=== PATIENT | female | born 1985 ===

== ENCOUNTER 2023-01-21 17:25 | Emergency (ER) | payer OTHER, SELFPAY ==
--- NOTE | ~2023-01-21 | CT_ITS ---
EXAMINATION: CT ABDOMEN AND PELVIS WITHOUT CONTRAST CLINICAL INFORMATION: Right flank pain. COMPARISON: CT abdomen/pelvis 01/01/2018. TECHNIQUE: Multidetector volumetric imaging was performed from the superior aspect of the liver through the pubic symphysis. Sagittal and coronal reformatted images were obtained on the technologist's workstation. This CT examination was performed using dose optimization techniques as appropriate, variously including the following: *Automated exposure control *Adjustment of mA and/or kV according to patient size (this includes techniques or standardized protocols for targeted exams where dose is matched to indication/reason for exam; i.e. extremities or head) *Use of iterative reconstruction technique DLP: 546 mGy-cm FINDINGS: The lack of intravenous contrast limits evaluation of the solid visceral organs including the liver, spleen, pancreas, and kidneys. LUNG BASES: The visualized lung bases are unremarkable. LIVER, GALLBLADDER, AND BILIARY TREE: The liver is normal in size, shape, and attenuation. No focal liver lesion. No biliary ductal dilatation is present. Cholecystectomy. PANCREAS: Unremarkable. SPLEEN: Unremarkable. ADRENAL GLANDS: Unremarkable. KIDNEYS AND URETERS: Trace asymmetric right hydroureter without a clear obstructive renal calculi. Punctate nonobstructing right-sided renal calculi. Simple appearing cyst in the anterior right kidney measuring 1.8 cm for which no imaging follow-up is recommended. No perinephric fat stranding. BLADDER: Unremarkable. GASTROINTESTINAL TRACT: The stomach and the small bowel are nondilated. Normal appendix. Mild colonic diverticulosis without significant pericolonic fat stranding or free fluid. No bowel obstruction. ABDOMINAL WALL: No significant hernia is appreciated. LYMPH NODES: No lymphadenopathy. VASCULAR: Normal caliber abdominal aorta. PELVIC VISCERA: Unremarkable. OSSEOUS STRUCTURES: No acute or aggressive appearing osseous findings. CT/CT abdomen pelvis wo IV con IMPRESSION: 1. Trace asymmetric right hydroureter without a clear obstructive renal calculi that could be seen in the setting of a recently passed stone. 2. Punctate nonobstructing right-sided renal calculi. 3. Mild colonic diverticulosis without evidence of acute diverticulitis.
[2023-01-21 18:18] VITALS: BP 127/94; PULSE 109; RESP 18; TEMP 38.6; O2SAT 100; BMI 28.4
--- NOTE | 2023-01-21 18:20 | ED_ITS ---
HPI - Abdominal Pain General Chief Complaint: Abdominal Pain Stated Complaint: low abd pain ? kidney stones Time Seen by Provider: 01/21/23 21:06 Source: patient, family and lead customer service representative Mode of arrival: ambulatory Limitations: no limitations History of Present Illness HPI narrative: 37-year-old female came in for evaluation of fever, chills, right-sided abdominal /flank pain. Patient's symptoms started 3 days patient gets frequent UTIs been having dysuria and frequency urination now she has right flank pain. No hematuria. Related Data Previous Rx's Medication Instructions Recorded cefuroxime axetil 500 mg tablet 500 mg PO BID #20 tabs 01/21/23 Allergies Allergy/AdvReac Type Severity Reaction Status Date / Time prochlorperazine Allergy Anaphylaxis Verified 01/21/23 18:25 [From Compazine] tramadol Allergy Anaphylaxis Verified 01/21/23 18:25 Review of Systems Review of Systems All other systems are reviewed and are negative Constitutional: Reports as per HPI and Reports no additional constitutional complaints Eyes: Reports as per HPI and Reports no additional eye complaints Reports system reviewed and no additional complaints, except as documented Cardiovascular: Reports as per HPI and Reports no additional cardiovascular complaints Respiratory: Reports as per HPI and Reports no additional respiratory complaints Gastrointestinal: Reports as per HPI and Reports no additional gastrointestinal complaints Genitourinary: Reports no additional female genitourinary complaints Musculoskeletal: Reports no additional musculoskeletal complaints Skin/Breast: Reports system reviewed and no additional complaints, except as docu Psychiatric: Reports no additional psychiatric complaints Endocrine: Reports no additional endocrine complaints Hematologic/Lymphatic: Reports no additional hematologic/lymphatic complaints Allergic/Immunologic: Reports no additional allergic/immunologic complaints Reports system reviewed and no additional complaints, except as documented and Reports Abnormal speech present [facility] Social History Social History Smoked in Last 30 Days: No Use of substances other than those prescribed or required for medical reasons: No Patient : No Physical Exam ED Vital Signs: Vital Signs - 24 hr 01/21/23 18:18 Temperature 101.4 F H Pulse Rate 109 H Respiratory Rate 18 Blood Pressure 127/94 H Pulse Oximetry 100 Oxygen Delivery Method Room Air BMI result Body Mass Index 28.4 Vital signs have been reviewed and appear to be correct. Blood pressure elevated. Heart rate tachycardia. Respiratory rate normal. Febrile. Oxygen saturation normal. Appearance: Alert. Oriented X3. No acute distress. Head: Normal external exam. Normocephalic. Atraumatic. No Stacy signs noted. No raccoon eyes noted Eyes: PERRLA. EOMI. Conjunctiva and sclera normal. Eyelids normal. ENT: TM's Normal. Pharynx normal. Uvula midline. Moist mucous membranes. No trismus noted. No drooling noted. No muffled voice noted. Neck: Normal inspection. Neck supple. FROM. No adenopathy. Thyroid Normal. No meningeal signs. No neck mass noted. CVS: Normal heart rate and rhythm. Heart sound normal. No murmurs noted. Pulses normal throughout. Respiratory: No respiratory distress. Painless inspiration. Breath sounds normal. No wheezes/rales/rhonchi noted. Chest nontender. No accessory muscle usage noted or decreased air movement noted. Abdomen: Soft and nontender. Bowel sounds normal in all 4 quadrants. No distention noted. No organomegaly noted. No visible injury noted. Back: right CVA tenderness. Full range of motion noted. Skin: Skin warm and dry. Normal skin color. Normal skin turgor. No rashes/lesions/lacerations noted. Extremities: No lower extremity edema. Extremities exhibit normal range of motion. Extremities nontender. Neuro: Oriented X 3. Cranial nerve exam: II-XII are grossly intact No motor deficit. No sensory deficit. Reflexes normal. Course Course Course Narrative: 1827-This is a rapid medical exam. Deferred additional HPI, ROS, PE to primary provider. 37 yo female with history of kidney stones here with complaints of tactile temps, nausea, right flank pain since 2pm. Will obtain labs, UA - nursing informed me that the patient has a fever of 101.3. She is also tachycardic. At this time infection is suspected. Blood cultures and lactic acid ordered. Antibiotics ordered. CT abdomen and pelvis ordered. Charge nurse was notified of patient. patient reports history of previous kidney stone with sepsis Reevaluation(s) Reevaluation #1: right pyelonephritis with no obstructing uropathy, patient meet criteria for SIRS no severe sepsis or septic shock. Received in the ED fluid ceftriaxone will discharge home on cefuroxime. Patient was encouraged to drink plenty of fluids and return if she is not improving. Mild hypokalemia will replete potassium orally. Time: 21:21 Medical Decision Making Differential Diagnosis Differential Diagnoses: The differential diagnosis associated with the presentation includes ( Acute appendicitis, colitis, diverticulitis, small- bowel obstruction, UTI, pyelonephritis, sepsis, severe anemia, electrolyte abnormality , .) Admission/Observation Consideration of admission/observation: Escalation of care including admission/observation considered Lab Data MDM Lab Attestation statement: I reviewed the patient's lab results. 01/21/23 18:31 01/21/23 18:31 Labs: Lab Results 01/21/23 01/21/23 Range/Units 18:31 18:39 WBC 11.0 H (4.8-10.8) X10*3/uL RBC 4.73 (4.20-5.50) X10*6/uL Hgb 13.9 (12.0-16.0) g/dl Hct 41.2 (37.0-47.0) % MCV 87.1 (80.0-98.0) fL MCH 29.4 (27.0-33.0) pg MCHC 33.7 (31.0-35.0) g/dl RDW 13.4 (11.0-16.0) % Plt Count 219 (160-400) X10*3/uL MPV 9.6 (9.4-12.3) fL Immature Gran % (Auto) 0.5 H (0.0-0.4) % Neut % (Auto) 88.6 H (45-73) % Lymph % (Auto) 4.3 L (20-40) % [place] % (Auto) 5.2 (2-11) % Eos % (Auto) 1.0 (0-4) % Baso % (Auto) 0.4 (0-2) % Lymph # (Auto) 0.5 L (1.2-4.9) X10*3/uL [place] # (Auto) 0.6 (0.1-1.2) X10*3/uL Eos # (Auto) 0.1 (0.0-0.4) X10*3/uL Baso # (Auto) 0.0 (0.0-0.2) X10*3/uL Abs Immat Gran (auto) 0.05 H (0.00-0.03) X10*3/uL Absolute Neuts (auto) 9.8 H (2.0-8.3) x10*3/uL Absolute Nucleated RBC 0.000 (0.0-0.012) X10*3/uL Nucleated RBC % (auto) 0.0 (0.0-0.2) /100WBC Sodium 139 (135-145) mmol/L Potassium 3.2 L (3.3-5.1) mmol/L Chloride 102 (96-108) mmol/L Carbon Dioxide 26 (22-29) mmol/L Anion Gap 14 (12-20) BUN 9 (9-16) mg/dL Creatinine 0.85 (0.5-1.4) mg/dL Estim Creat Clear Calc 86.6 Estimated GFR > 60 Random Glucose 119 H (60-115) mg/dL Lactic Acid 1.5 (0.5-2.0) mmol/L Calcium 9.8 (8.4-10.2) mg/dL Total Bilirubin 1.1 H (0.0-1.0) mg/dL Direct Bilirubin 0.4 (0.0-0.5) mg/dL AST 23 (5-31) U/L ALT 23 (0-31) U/L Alkaline Phosphatase 85 (39-117) U/L Total Protein 8.5 H (6.5-8.0) g/dL Albumin 5.0 (3.5-5.0) g/dL Lipase 30 (8-78) U/L Urine Color Yellow Urine Appearance Cloudy Urine pH 6.0 (5.0-9.0) Ur Specific [place] 1.010 (1.005-1.025) Urine Protein 30 (1+) H (Neg-Trace) mg/dL Urine Glucose (UA) Negative (Negative) mg/dL Urine Ketones Negative (Negative) mg/dL Urine Blood Moderate (2+) H (Negative) Urine Nitrite Negative (Negative) Ur Leukocyte Esterase Large (3+) H (Negative) Urine RBC 6-10 H (0-2) /HPF Urine WBC >50 H (0-5) /HPF Ur Squamous Epith Cells 0-2 (0-2) /HPF Urine Bacteria 1+ (None Seen) Hyaline Casts 0-2 (0-2) /LPF Urine Test NEGATIVE (NEGATIVE) Independent Interpretation I performed an independent interpretation of an: CT Scan ( Abdomen and pelvis:1. Trace asymmetric right hydroureter without a clear obstructive renal calculi that could be seen in the setting of a recently passed stone. 2. Punctate nonobstructing right-sided renal calculi. 3. Mild colonic diverticulosis without evidence of acute diverticulitis.) Radiology Impression Discussion of test interpretation with radiology: I have reviewed the radiologist's reading. Medications Administered Discontinued Medications Generic Name Dose Route Start Last Admin Trade Name Freq PRN Reason Stop Dose Admin Acetaminophen 975 mg 01/21/23 18:26 01/21/23 20:04 Acetaminophen 325 Mg Tablet PO 01/21/23 18:27 975 mg ONCE ONE Administration Ceftriaxone Sodium 1 gm/ 50 mls @ 100 mls/hr 01/21/23 18:27 01/21/23 20:37 Sodium Chloride IV 01/21/23 18:56 Infused ONCE ONE Infusion Sodium Chloride 1,000 mls @ 999 mls/hr 01/21/23 18:27 01/21/23 20:04 Ns IV 01/21/23 19:27 999 mls/hr .Q1H1M STA Administration Discharge Plan Discharge Clinical Impression: Pyelonephritis of right kidney, Acute hypokalemia Patient Disposition: Home, Self-Care Instructions: Kidney Infection (ED) Additional Instructions: drink plenty of fluid. Follow-up with your primary doctor. If symptoms is not going away or you do not feel improved in 48 hours return to the emergency department. Prescriptions: New cefuroxime axetil 500 mg tablet 500 mg PO BID Qty: 20 0RF
[2023-01-21 18:37] LABS: MANUAL DIFF FLAG NO
[2023-01-21 18:38] LABS: Basophils Percent Auto 0.4 % (0-2); Eosinophils Absolute Auto 0.1 X10*3/uL (0.0-0.4); Hematocrit 41.2 % (37.0-47.0); Hemoglobin 13.9 g/dl (12.0-16.0); Imm Gran Abs Auto 0.05 X10*3/uL (0.00-0.03); Imm Gran Pct Auto 0.5 % (0.0-0.4); Lymphocytes Absolute Auto 0.5 X10*3/uL (1.2-4.9); Lymphocytes Percent Auto 4.3 % (20-40); Mean Corpuscular HGB Conc 33.7 g/dl (31.0-35.0); Mean Corpuscular Hemoglobin 29.4 pg (27.0-33.0); Mean Corpuscular Volume 87.1 fL (80.0-98.0); Mean Platelet Volume 9.6 fL (9.4-12.3); Monocytes Absolute Auto 0.6 X10*3/uL (0.1-1.2); Monocytes Percent Auto 5.2 % (2-11); Neutrophils Absolute Auto 9.8 x10*3/uL (2.0-8.3); Neutrophils Percent Auto 88.6 % (45-73); Platelet Count 219 X10*3/uL (160-400); Red Blood Count 4.73 X10*6/uL (4.20-5.50); Red Cell Distribution Width 13.4 % (11.0-16.0)
[2023-01-21 18:47] LABS: Appearance Urine Cloudy; Color Urine Yellow; Glucose Urine UA Negative (Negative); Leukocyte Esterase Urine Large (3+) (Negative); Nitrite Urine Negative (Negative); UMIC TRIGGER UACC YES; Urine Blood Moderate (2+) (Negative); Urine Ketones Negative (Negative); Urine Protein 30 (1+) mg/dL (Neg-Trace)
[2023-01-21 18:47] LABS: Lactic Acid 1.5 mmol/L (0.5-2.0)
[2023-01-21 18:49] LABS: Bacteria Urine 1+ (None Seen); Hyaline Casts Urine 0-2 /LPF (0-2); Squamous Epithelial Cell Urine 0-2 /HPF (0-2); UACC Culture Trigger YES; UPreg QC Valid YES; Urine Pregnancy NEGATIVE (NEGATIVE); WBC Urine >50 /HPF (0-5)
[2023-01-21 18:53] LABS: Alanine Aminotransferase 23 U/L (0-31); Alkaline Phosphatase 85 U/L (39-117); Anion Gap 14 (12-20); Aspartate Amino Transferase 23 U/L (5-31); Bilirubin Direct 0.4 mg/dL (0.0-0.5); Bilirubin Total 1.1 mg/dL (0.0-1.0); Blood Urea Nitrogen 9 mg/dL (9-16); Calcium 9.8 mg/dL (8.4-10.2); Carbon Dioxide 26 mmol/L (22-29); Chloride 102 mmol/L (96-108); Creatinine Clr Calc Pharmacy 86.6; Estimated Glomerular Filt Rate > 60; Glucose Random 119 mg/dL (60-115); Lipase 30 U/L (8-78); Potassium 3.2 mmol/L (3.3-5.1); Sodium 139 mmol/L (135-145); Total Protein 8.5 g/dL (6.5-8.0)
[2023-01-21] MEDS: cefTRIAXone sodium 1 GM in 0.9 % Sodium Chloride 50 ML IV (20:03)
[2023-01-21] MEDS: 0.9 % Sodium Chloride 1,000 ML 999 ML IV ×2 (20:04→21:30)
[2023-01-21] MEDS: Acetaminophen 325 MG TABLET 975 MG PO (20:04)
--- NOTE | 2023-01-21 20:07 | PC.NURSE ---
Placed a 20g IV in the left AC and medicated per MAY. Pt A&Ox4, GCS 15, complaining of pain in her lower abdomen and shivers. Pt is primarily [place] Speaking but makes do in [place].
[2023-01-21] MEDS: Potassium Chloride Packet 20 MEQ PACKET 40 MEQ PO (21:20)
[2023-01-21 21:25] VITALS: BP 112/64; PULSE 99; RESP 14; TEMP 37.1; O2SAT 98
[2023-01-21 22:27] VITALS: BP 100/61; PULSE 86; RESP 16; TEMP 36.7; O2SAT 100
== END 2023-01-21 22:33 | disposition home or self-care (01) ==
PROVIDERS: Nurse Practitioner Family; Emergency Provider Emergency Medicine
DX: N12 Tubulo-interstitial nephritis, not specified as acute or chronic (principal); E87.6 Hypokalemia; R50.9 Fever, unspecified; R00.0 Tachycardia, unspecified; K57.30 Diverticulosis of large intestine without perforation or abscess without bleeding
CPT/HCPCS: 36415; 74176; 80048; 80076; 81001; 81025; 83605; 83690; 85025; 87040; 87086; 87088; 87186; 96361; 96365; 99284; J0696

== ENCOUNTER 2023-04-27 08:28 | Emergency (ER) | payer OTHER, SELFPAY ==
--- NOTE | ~2023-04-27 | CT_ITS ---
EXAMINATION: CT ABDOMEN AND PELVIS WITHOUT CONTRAST CLINICAL INFORMATION: Right flank pain. COMPARISON: 01/21/2023 TECHNIQUE: Multidetector volumetric imaging was performed from the superior aspect of the liver through the pubic symphysis. Sagittal and coronal reformatted images were obtained on the technologist's workstation. This CT examination was performed using dose optimization techniques as appropriate, variously including the following: *Automated exposure control *Adjustment of mA and/or kV according to patient size (this includes techniques or standardized protocols for targeted exams where dose is matched to indication/reason for exam; i.e. extremities or head) *Use of iterative reconstruction technique DLP: 613 mGy-cm FINDINGS: Motion artifact technically degrades image quality. LUNG BASES: The visualized lung bases are unremarkable. LIVER, GALLBLADDER, AND BILIARY TREE: The noncontrast liver is normal in size and contour. No biliary ductal dilatation is present. The gallbladder is surgically absent. PANCREAS: Unremarkable. SPLEEN: Enlarged. The spleen measures 13.5 cm in AP dimension. ADRENAL GLANDS: No adrenal mass. KIDNEYS AND URETERS: The kidneys are symmetric in size. Bilateral nonobstructing renal calculi. The medullary pyramids appear hyperdense. No hydronephrosis or perinephric fluid collection. Stable right renal cyst. BLADDER: Underdistended. No bladder calculus is seen. GASTROINTESTINAL TRACT: Unopacified loops of small and large bowel are not obstructed. Appendix is within normal limits. ABDOMINAL WALL: No significant hernia is appreciated. LYMPH NODES: No bulky lymphadenopathy. VASCULAR: Normal caliber abdominal aorta. PELVIC VISCERA: Unremarkable. OSSEOUS STRUCTURES: No destructive bone lesions. CT/CT abdomen pelvis wo IV con IMPRESSION: Limited study due to motion artifact. Splenomegaly. Bilateral nonobstructing renal calculi. No hydronephrosis. Findings suggestive of medullary nephrocalcinosis.
[2023-04-27 08:39] VITALS: BP 121/76; PULSE 93; RESP 19; TEMP 36.6; O2SAT 98; BMI 28.9
[2023-04-27 08:56] LABS: MANUAL DIFF FLAG NO
[2023-04-27 08:57] LABS: Basophils Percent Auto 0.2 % (0-2); Eosinophils Absolute Auto 0.1 X10*3/uL (0.0-0.4); Eosinophils Percent Auto 1.8 % (0-4); Imm Gran Abs Auto 0.02 X10*3/uL (0.00-0.03); Imm Gran Pct Auto 0.3 % (0.0-0.4); Lymphocytes Absolute Auto 0.3 X10*3/uL (1.2-4.9); Lymphocytes Percent Auto 5.7 % (20-40); Mean Corpuscular HGB Conc 34.1 g/dl (31.0-35.0); Mean Corpuscular Hemoglobin 29.1 pg (27.0-33.0); Mean Corpuscular Volume 85.2 fL (80.0-98.0); Mean Platelet Volume 8.8 fL (9.4-12.3); Monocytes Absolute Auto 0.3 X10*3/uL (0.1-1.2); Monocytes Percent Auto 5.2 % (2-11); Neutrophils Absolute Auto 5.2 x10*3/uL (2.0-8.3); Neutrophils Percent Auto 86.8 % (45-73); Platelet Count 137 X10*3/uL (160-400); Red Blood Count 4.81 X10*6/uL (4.20-5.50); Red Cell Distribution Width 13.7 % (11.0-16.0)
[2023-04-27 08:58] LABS: Appearance Urine Turbid; Color Urine Dark Yellow; Glucose Urine UA Negative (Negative); Leukocyte Esterase Urine Negative (Negative); Nitrite Urine Negative (Negative); PH 5.5 (5.0-9.0); Specific Gravity - Urine >= 1.030 (1.005-1.025); UMIC TRIGGER UACC YES; Urine Blood Trace (Negative); Urine Ketones Trace mg/dL (Negative); Urine Protein 30 (1+) mg/dL (Neg-Trace)
[2023-04-27 09:02] LABS: UPreg QC Valid YES; Urine Pregnancy NEGATIVE (NEGATIVE)
[2023-04-27 09:07] LABS: Bacteria Urine 2+ (None Seen); Hyaline Casts Urine 0-2 /LPF (0-2); Squamous Epithelial Cell Urine >20 /HPF (0-2); WBC Urine 0-5 /HPF (0-5)
[2023-04-27 09:08] LABS: Anion Gap 12 (12-20); Blood Urea Nitrogen 12 mg/dL (9-16); Calcium 8.6 mg/dL (8.4-10.2); Carbon Dioxide 22 mmol/L (22-29); Chloride 106 mmol/L (96-108); Creatinine Clr Calc Pharmacy 104.5; Estimated Glomerular Filt Rate > 60; Glucose Random 98 mg/dL (60-115); Potassium 3.3 mmol/L (3.3-5.1); Sodium 137 mmol/L (135-145)
--- NOTE | 2023-04-27 09:37 | ED_ITS ---
HPI - Female Genitourinary General Chief complaint: Urogenital-Female Stated complaint: Pain near kidneys Time Seen by Provider: 04/27/23 09:24 Source: patient Mode of arrival: ambulatory Limitations: no limitations History of Present Illness HPI Narrative: 37-year-old female came in for evaluation of bilateral flank pain right more than left worse since yesterday, patient had similar pain in the past when she had kidney stones and urosepsis. Patient noticed dark urine but no serg hematuria, slight dysuria and frequency urination. Patient also felt chills but no fever. Related Data Previous Rx's Medication Instructions Recorded cefuroxime axetil 500 mg tablet 500 mg PO BID #20 tabs 01/21/23 cefuroxime axetil 500 mg tablet 500 mg PO BID #20 tabs 01/21/23 Allergies Allergy/AdvReac Type Severity Reaction Status Date / Time prochlorperazine Allergy Anaphylaxis Verified 04/27/23 08:37 [From Compazine] tramadol Allergy Anaphylaxis Verified 04/27/23 08:37 Review of Systems 2 Review of Systems: All other systems are reviewed and are negative Constitutional: Reports as per HPI and Reports no additional constitutional complaints Eyes: Reports as per HPI and Reports no additional eye complaints Reports system reviewed and no additional complaints, except as documented Cardiovascular: Reports as per HPI and Reports no additional cardiovascular complaints Respiratory: Reports as per HPI and Reports no additional respiratory complaints Gastrointestinal: Reports as per HPI and Reports no additional gastrointestinal complaints Genitourinary: Reports no additional female genitourinary complaints Musculoskeletal: Reports no additional musculoskeletal complaints Skin/Breast: Reports system reviewed and no additional complaints, except as docu Psychiatric: Reports no additional psychiatric complaints Endocrine: Reports no additional endocrine complaints Hematologic/Lymphatic: Reports no additional hematologic/lymphatic complaints Allergic/Immunologic: Reports no additional allergic/immunologic complaints Reports system reviewed and no additional complaints, except as documented and Reports Abnormal speech present [facility] Social History Social History Advance Directives: No Physical Exam 2 Vital Signs: Vital Signs: Last Vital Signs Temp 98 F 04/27/23 08:39 Pulse 93 04/27/23 08:39 Resp 19 04/27/23 08:39 BP 121/76 04/27/23 08:39 Pulse Ox 98 04/27/23 08:39 O2 Del Method Room Air 04/27/23 08:39 BMI result Body Mass Index 28.9 Vital signs have been reviewed and appear to be correct. Blood pressure elevated. Heart rate normal. Respiratory rate normal. Temperature normal. Oxygen saturation normal. Appearance: Alert. Oriented X3. No acute distress. Head: Normal external exam. Normocephalic. Atraumatic. No Stacy signs noted. No raccoon eyes noted Eyes: PERRLA. EOMI. Conjunctiva and sclera normal. Eyelids normal. ENT: TM's Normal. Pharynx normal. Uvula midline. Moist mucous membranes. No trismus noted. No drooling noted. No muffled voice noted. Neck: Normal inspection. Neck supple. FROM. No adenopathy. Thyroid Normal. No meningeal signs. No neck mass noted. CVS: Normal heart rate and rhythm. Heart sound normal. No murmurs noted. Pulses normal throughout. Respiratory: No respiratory distress. Painless inspiration. Breath sounds normal. No wheezes/rales/rhonchi noted. Chest nontender. No accessory muscle usage noted or decreased air movement noted. Abdomen: Soft, mild right lower quadrant tenderness, no guarding, no rebound tenderness. Bowel sounds normal in all 4 quadrants. No distention noted. No organomegaly noted. No visible injury noted. Back: Right CVA tenderness. Full range of motion noted. Skin: Skin warm and dry. Normal skin color. Normal skin turgor. No rashes/lesions/lacerations noted. Extremities: No lower extremity edema. Extremities exhibit normal range of motion. Extremities nontender. Neuro: Oriented X 3. Cranial nerve exam: II-XII are grossly intact No motor deficit. No sensory deficit. Reflexes normal. Course Reevaluation(s) Reevaluation #1: 37-year-old female came in with flank pain patient with known history of kidney stones, CT of the abdomen pelvis is showing no obstructing stone with no hydronephrosis, UA not revealing a UTI. Patient otherwise with unremarkable labs. Patient was instructed to follow-up with her urologist at [place]. Time: 12:12 Medications Administered Discontinued Medications Generic Name Dose Route Start Last Admin Trade Name Freq PRN Reason Stop Dose Admin Sodium Chloride 1,000 mls @ 999 mls/hr 04/27/23 09:37 04/27/23 10:38 Ns IV 04/27/23 10:37 999 mls/hr .Q1H1M ONE Administration Medical Decision Making Differential Diagnosis Differential Diagnoses: The differential diagnosis associated with the presentation includes ( Pyelonephritis, UTI, obstructing kidney stone, appendicitis, colitis, severe anemia, electrolyte abnormality , .) Admission/Observation Consideration of admission/observation: Escalation of care including admission/observation considered Lab Data MDM Lab Attestation statement: I reviewed the patient's lab results. 04/27/23 08:51 04/27/23 08:51 Labs: Lab Results 04/27/23 Range/Units 08:51 WBC 6.0 (4.8-10.8) X10*3/uL RBC 4.81 (4.20-5.50) X10*6/uL Hgb 14.0 (12.0-16.0) g/dl Hct 41.0 (37.0-47.0) % MCV 85.2 (80.0-98.0) fL MCH 29.1 (27.0-33.0) pg MCHC 34.1 (31.0-35.0) g/dl RDW 13.7 (11.0-16.0) % Plt Count 137 L D (160-400) X10*3/uL MPV 8.8 L (9.4-12.3) fL Immature Gran % (Auto) 0.3 (0.0-0.4) % Neut % (Auto) 86.8 H (45-73) % Lymph % (Auto) 5.7 L (20-40) % [place] % (Auto) 5.2 (2-11) % Eos % (Auto) 1.8 (0-4) % Baso % (Auto) 0.2 (0-2) % Lymph # (Auto) 0.3 L (1.2-4.9) X10*3/uL [place] # (Auto) 0.3 (0.1-1.2) X10*3/uL Eos # (Auto) 0.1 (0.0-0.4) X10*3/uL Baso # (Auto) 0.0 (0.0-0.2) X10*3/uL Abs Immat Gran (auto) 0.02 (0.00-0.03) X10*3/uL Absolute Neuts (auto) 5.2 (2.0-8.3) x10*3/uL Absolute Nucleated RBC 0.000 (0.0-0.012) X10*3/uL Nucleated RBC % (auto) 0.0 (0.0-0.2) /100WBC Sodium 137 (135-145) mmol/L Potassium 3.3 (3.3-5.1) mmol/L Chloride 106 (96-108) mmol/L Carbon Dioxide 22 (22-29) mmol/L Anion Gap 12 (12-20) BUN 12 (9-16) mg/dL Creatinine 0.71 (0.5-1.4) mg/dL Estim Creat Clear Calc 104.5 Estimated GFR > 60 Random Glucose 98 (60-115) mg/dL Calcium 8.6 D (8.4-10.2) mg/dL Urine Color Dark Yellow Urine Appearance Turbid Urine pH 5.5 (5.0-9.0) Ur Specific [place] >= 1.030 H (1.005-1.025) Urine Protein 30 (1+) H (Neg-Trace) mg/dL Urine Glucose (UA) Negative (Negative) mg/dL Urine Ketones Trace (Negative) mg/dL Urine Blood Trace H (Negative) Urine Nitrite Negative (Negative) Ur Leukocyte Esterase Negative (Negative) Urine RBC 3-5 H (0-2) /HPF Urine WBC 0-5 (0-5) /HPF Ur Squamous Epith Cells >20 (0-2) /HPF Urine Bacteria 2+ (None Seen) Hyaline Casts 0-2 (0-2) /LPF Urine Test NEGATIVE (NEGATIVE) Independent Interpretation I performed an independent interpretation of an: CT Scan ( Abdomen and pelvis:Limited study due to motion artifact. Splenomegaly. Bilateral nonobstructing renal calculi. No hydronephrosis. Findings suggestive of medullary nephrocalcinosis.) Chronic Conditions Patient?s care impacted by: Other ( Kidney stones.) Discharge Plan Discharge Clinical Impression: Flank pain Patient Disposition: Home, Self-Care Instructions: Flank Pain (ED) Additional Instructions: follow-up with your urologist. Prescriptions: No Action cefuroxime axetil 500 mg tablet 500 mg PO BID Qty: 20 0RF cefuroxime axetil 500 mg tablet 500 mg PO BID Qty: 20 0RF
[2023-04-27] MEDS: 0.9 % Sodium Chloride 1,000 ML 999 ML IV (10:38)
[2023-04-27 12:33] VITALS: BP 105/60; PULSE 88; RESP 14; TEMP 36.6; O2SAT 99
== END 2023-04-27 12:34 | disposition home or self-care (01) ==
PROVIDERS: Emergency Provider Emergency Medicine
DX: R10.9 Unspecified abdominal pain (principal)
CPT/HCPCS: 36415; 74176; 80048; 81001; 81003; 81025; 85025; 99284

== ENCOUNTER 2024-03-23 15:32 | Emergency (ER) | payer OTHER, SELFPAY ==
--- NOTE | ~2024-03-23 | CT_ITS ---
CLINICAL HISTORY: hematuria, b l flank pain CT abdomen and pelvis without contrast Comparison: 04/27/23 Findings: No hydronephrosis. Right nephrolithiasis measures up to 3 mm. Question punctate left nephrolithiasis. Right renal cyst, also present on the prior study No bladder stone. No consolidation at the lung bases. Status post cholecystectomy. Subcentimeter low attenuating lesion in the liver which is too small to characterize. Splenomegaly, measuring 14.3 cm in craniocaudal dimension, previously measuring 12.8 cm. The other solid organs are normal. No bowel wall thickening or dilation. A normal appendix is identified. No aneurysm. Trace calcified atherosclerotic disease. No lymphadenopathy. No ascites. No acute fracture. Impression: No urinary tract obstruction or other acute findings. Splenomegaly. This document has been electronically signed by: Arpita Louise MD on 03/23/2024 18:30:17
[2024-03-23 15:37] VITALS: BP 140/89; PULSE 98; RESP 19; TEMP 36.6; O2SAT 99; BMI 28.9
--- NOTE | 2024-03-23 15:37 | ED_ITS ---
HPI - General Adult General Chief complaint: Urogenital-Female Stated complaint: kidney pain/hx of sepsis from kidney stones Time Seen by Provider: 03/23/24 20:44 Source: patient Limitations: no limitations History of Present Illness ED Provider: Tanna Villa PA-C HPI narrative: 38-year-old female with a history of kidney stones, with self report of urosepsis secondary to an obstructing ureteral stone, presents with bilateral flank pain times 1-2 days. Pain primarily over right mid back/flank, is nonradiating. Denies fever, dysuria, hematuria, nausea vomiting. Patient states when she had urosepsis she almost ??, she wanted to be sure she was not developing sepsis again. Patient denies new activity, heavy lifting, or trauma that could have precipitated her discomfort. Related Data Previous Rx's ?Medication ?Instructions ?Recorded cefuroxime axetil 500 mg tablet 500 mg PO BID #20 tabs 01/21/23 cefuroxime axetil 500 mg tablet 500 mg PO BID #20 tabs 01/21/23 ibuprofen 200 mg tablet 200 mg PO Q6H PRN fever or pain 04/27/23 #30 tabs ibuprofen 600 mg tablet 600 mg PO Q6H PRN fever or pain 03/23/24 #20 tabs Allergies Allergy/AdvReac Type Severity Reaction Status Date / Time prochlorperazine Allergy Anaphylaxis Verified 03/23/24 15:39 [From Compazine] tramadol Allergy Anaphylaxis Verified 03/23/24 15:39 Review of Systems 2 Review of Systems: Yes all other systems are reviewed and are negative Constitutional: Constitutional: Denies fatigue and Denies fever(s) Cardiovascular: Cardiovascular: Denies chest pain and Denies dyspnea Respiratory: Respiratory: Denies dyspnea Gastrointestinal: Gastrointestinal: Reports abdominal pain, Denies nausea and Denies vomiting Genitourinary: Genitourinary: Denies hematuria, Denies dysuria and Reports flank pain Musculoskeletal: Musculoskeletal: Reports back pain Endocrine: Endocrine: Denies fatigue COUNTS INCLUDE 234 BEDS AT THE [facility] Past Medical History Attestation statement: The following information was validated with the patient. Social History Social History Advance Directives: No Advance Directives Information Provided: No Do you have a plan to hurt others: No Plan Physical Exam ED Vital Signs: Vital Signs - 24 hr 03/23/24 15:37 03/23/24 21:27 Temperature 98 F 98.6 F Pulse Rate 98 72 Respiratory Rate 19 16 Blood Pressure 140/89 H 149/78 H Pulse Oximetry 99 96 Oxygen Delivery Method Room Air Room Air BMI result Body Mass Index 28.9 Const Other: Alert, well-appearing Orientation/consciousness: patient oriented x3 Resp Other: Nonlabored respiration Cardio Other: Normal peripheral perfusion GI Other: Abdomen is soft, nontender nondistended no guarding Back/Spine/Pelvis Other: No CVA tenderness Skin Other: Warm dry no rash Neuro General: patient oriented x3, no focal motor deficits and CN's II-XI intact bilaterally Psych Other: Calm cooperative Course Course Course Narrative: This is a Rapid Medical Examination (RME) performed by Jay Pérez PA-C in triage. Full HPI, ROS, assessment and treatment plan per primary provider in the Main ED. 38 yo female here feeling generally unwell. reports bilateral kidney pain x2-3 days, worsening today. reports urine is dark in color with foul odor. admits to hx of sepsis from renal stones (was able to pass stones on her own). admits to anxiety around this. no fever/chills. +very anxious, tearful. no CVAT. Plan: labs, UA Medications Administered Discontinued Medications Generic Name Dose Route Start Last Admin Trade Name Zonia PRN Reason Stop Dose Admin Ibuprofen 600 mg 03/23/24 21:16 03/23/24 21:20 Ibuprofen 600 Mg Tablet PO 03/23/24 21:17 600 mg ONCE ONE Administration Medical Decision Making Medical Decision Making [facility] Narrative: 38-year-old female with a history of kidney stones, with self report of urosepsis secondary to an obstructing ureteral stone, presents with bilateral flank pain times 1-2 days. Pain primarily over right mid back/flank, is nonradiating. Denies fever, dysuria, hematuria, nausea vomiting. Patient states when she had urosepsis she almost ??, she wanted to be sure she was not developing sepsis again. Patient denies new activity, heavy lifting, or trauma that could have precipitated her discomfort. Problem: Kidney stones History: Per patient I have considered the following differential diagnoses: Ureteral stone/renal colic, urinary tract infection, musculoskeletal strain, pyelonephritis Plan: Screening labs including a urinalysis CT scan were obtained from triage, she has bilateral on obstructing stones, no evidence of an obstructing stone, her urine is not infected, she has some hematuria, perhaps she just passed a stone, however she also has her menstrual cycle. We will send with ibuprofen as this medication has worked for her in the past. I have independently reviewed the following tests: Labs: No leukocytosis, not anemic, no electrolyte abnormality, urine not infected CT abdomen and pelvis:mpression: No urinary tract obstruction or other acute findings. Splenomegaly. This document has been electronically signed by: Arpita Louise MD on 03/23/2024 18:30:17 Lab Data 03/23/24 16:09 03/23/24 16:09 Labs: Lab Results 03/23/24 Range/Units 16:09 WBC 7.8 (4.8-10.8) X10*3/uL RBC 4.51 (4.20-5.50) X10*6/uL Hgb 13.5 (12.0-16.0) g/dl Hct 39.2 (37.0-47.0) % MCV 86.9 (80.0-98.0) fL MCH 29.9 (27.0-33.0) pg MCHC 34.4 (31.0-35.0) g/dl RDW 13.2 (11.0-16.0) % Plt Count 200 D (160-400) X10*3/uL MPV 9.6 (9.4-12.3) fL Immature Gran % (Auto) 0.4 (0.0-0.4) % Neut % (Auto) 85.3 H (45-73) % Lymph % (Auto) 7.4 L (20-40) % [place] % (Auto) 4.9 (2-11) % Eos % (Auto) 1.7 (0-4) % Baso % (Auto) 0.3 (0-2) % Lymph # (Auto) 0.6 L (1.2-4.9) X10*3/uL [place] # (Auto) 0.4 (0.1-1.2) X10*3/uL Eos # (Auto) 0.1 (0.0-0.4) X10*3/uL Baso # (Auto) 0.0 (0.0-0.2) X10*3/uL Abs Immat Gran (auto) 0.03 (0.00-0.03) X10*3/uL Absolute Neuts (auto) 6.7 (2.0-8.3) x10*3/uL Absolute Nucleated RBC 0.000 (0.0-0.012) X10*3/uL Nucleated RBC % (auto) 0.0 (0.0-0.2) /100WBC Sodium 139 (135-145) mmol/L Potassium 3.8 (3.3-5.1) mmol/L Chloride 108 (96-108) mmol/L Carbon Dioxide 24 (22-29) mmol/L Anion Gap 11 L (12-20) BUN 11 (9-16) mg/dL Creatinine 0.79 (0.5-1.4) mg/dL Estim Creat Clear Calc 93.0 Estimated GFR > 60 Random Glucose 139 H (60-115) mg/dL Calcium 9.2 D (8.4-10.2) mg/dL Magnesium 1.8 (1.6-2.6) mg/dL Total Bilirubin 0.5 (0.0-1.0) mg/dL AST 26 (5-31) U/L ALT 37 H (0-31) U/L Alkaline Phosphatase 59 (39-117) U/L Total Protein 7.6 (6.5-8.0) g/dL Albumin 4.6 (3.5-5.0) g/dL Lipase 46 (8-78) U/L Beta HCG, Quant < 2 mIU/mL Urine Color Yellow Urine Appearance Clear Urine pH 6.0 (5.0-9.0) Ur Specific [place] <= 1.005 (1.005-1.025) Urine Protein Negative (Neg-Trace) mg/dL Urine Glucose (UA) Negative (Negative) mg/dL Urine Ketones Negative (Negative) mg/dL Urine Blood Moderate (2+) H (Negative) Urine Nitrite Negative (Negative) Ur Leukocyte Esterase Negative (Negative) Urine RBC 0-2 (0-2) /HPF Urine WBC 0-5 (0-5) /HPF Ur Squamous Epith Cells 0-2 (0-2) /HPF Urine Bacteria None Seen (None Seen) Hyaline Casts 0-2 (0-2) /LPF Influenza Type A (PCR) NEGATIVE (Negative) Influenza Type B (PCR) NEGATIVE (Negative) RSV RNA Qual (PCR) NEGATIVE (Negative) SARS-CoV-2 RNA (RT-PCR) NEGATIVE (Negative) Discharge Plan Discharge Clinical Impression: Acute right flank pain Patient Disposition: Home, Self-Care Instructions: Flank Pain (ED) Additional Instructions: The CT scan revealed no obstructing kidney stone, there was no acute abnormality with an your abdomen. All of your labs were normal including your urinalysis, your urine is not infected. Use ibuprofen as needed for discomfort, 600 mg taken every 6 hours with food. Follow up with your primary care provider as needed. Prescriptions: New ibuprofen 600 mg tablet 600 mg PO Q6H PRN (Reason: fever or pain) Qty: 20 0RF No Action cefuroxime axetil 500 mg tablet 500 mg PO BID Qty: 20 0RF cefuroxime axetil 500 mg tablet 500 mg PO BID Qty: 20 0RF ibuprofen 200 mg tablet 200 mg PO Q6H PRN (Reason: fever or pain) Qty: 30 0RF Print Language: Icelandic
[2024-03-23 16:29] LABS: MANUAL DIFF FLAG NO
[2024-03-23 16:32] LABS: Basophils Percent Auto 0.3 % (0-2); Eosinophils Absolute Auto 0.1 X10*3/uL (0.0-0.4); Eosinophils Percent Auto 1.7 % (0-4); Hematocrit 39.2 % (37.0-47.0); Hemoglobin 13.5 g/dl (12.0-16.0); Imm Gran Abs Auto 0.03 X10*3/uL (0.00-0.03); Imm Gran Pct Auto 0.4 % (0.0-0.4); Lymphocytes Absolute Auto 0.6 X10*3/uL (1.2-4.9); Lymphocytes Percent Auto 7.4 % (20-40); Mean Corpuscular HGB Conc 34.4 g/dl (31.0-35.0); Mean Corpuscular Hemoglobin 29.9 pg (27.0-33.0); Mean Corpuscular Volume 86.9 fL (80.0-98.0); Mean Platelet Volume 9.6 fL (9.4-12.3); Monocytes Absolute Auto 0.4 X10*3/uL (0.1-1.2); Monocytes Percent Auto 4.9 % (2-11); Neutrophils Absolute Auto 6.7 x10*3/uL (2.0-8.3); Neutrophils Percent Auto 85.3 % (45-73); Platelet Count 200 X10*3/uL (160-400); Red Blood Count 4.51 X10*6/uL (4.20-5.50); Red Cell Distribution Width 13.2 % (11.0-16.0); White Blood Count 7.8 X10*3/uL (4.8-10.8)
[2024-03-23 16:45] LABS: Appearance Urine Clear; Color Urine Yellow; Glucose Urine UA Negative (Negative); Leukocyte Esterase Urine Negative (Negative); Nitrite Urine Negative (Negative); Specific Gravity - Urine <= 1.005 (1.005-1.025); UMIC TRIGGER UACC YES; Urine Blood Moderate (2+) (Negative); Urine Ketones Negative (Negative); Urine Protein Negative (Neg-Trace)
[2024-03-23 16:56] LABS: Alanine Aminotransferase 37 U/L (0-31); Albumin Level 4.6 g/dL (3.5-5.0); Alkaline Phosphatase 59 U/L (39-117); Anion Gap 11 (12-20); Aspartate Amino Transferase 26 U/L (5-31); Bilirubin Total 0.5 mg/dL (0.0-1.0); Blood Urea Nitrogen 11 mg/dL (9-16); Calcium 9.2 mg/dL (8.4-10.2); Carbon Dioxide 24 mmol/L (22-29); Chloride 108 mmol/L (96-108); Estimated Glomerular Filt Rate > 60; Glucose Random 139 mg/dL (60-115); Lipase 46 U/L (8-78); Magnesium 1.8 mg/dL (1.6-2.6); Potassium 3.8 mmol/L (3.3-5.1); Sodium 139 mmol/L (135-145); Total Protein 7.6 g/dL (6.5-8.0)
[2024-03-23 17:07] LABS: Bacteria Urine None Seen (None Seen); Hyaline Casts Urine 0-2 /LPF (0-2); RBC Urine 0-2 /HPF (0-2); Squamous Epithelial Cell Urine 0-2 /HPF (0-2); WBC Urine 0-5 /HPF (0-5)
[2024-03-23 17:17] LABS: Influenza A PCR NEGATIVE (Negative); Influenza B PCR NEGATIVE (Negative); Resp Syncy Virus RNA Qual PCR NEGATIVE (Negative); SARS COV2 PCR INHOUSE NEGATIVE (Negative)
[2024-03-23 17:54] LABS: HCG Quantitative < 2 mIU/mL
[2024-03-23] MEDS: Ibuprofen 600 MG TABLET PO (21:20)
[2024-03-23 21:27] VITALS: BP 149/78; PULSE 72; RESP 16; TEMP 37; O2SAT 96
[2024-03-23 22:22] VITALS: BP 149/78; PULSE 72; RESP 16; TEMP 37; O2SAT 96
== END 2024-03-23 22:23 | disposition home or self-care (01) ==
PROVIDERS: Physician Assistant Medical; Emergency Provider Emergency Medicine; PCP Internal Medicine
DX: R10.9 Unspecified abdominal pain (principal); R31.9 Hematuria, unspecified; Z87.442 Personal history of urinary calculi; Z03.818 Encounter for observation for suspected exposure to other biological agents ruled out
CPT/HCPCS: 0241U; 36415; 74176; 80053; 81001; 83690; 83735; 84702; 85025; 99284

== ENCOUNTER → 2024-03-23 17:18 | Outpatient (BNV) | payer OTHER, SELFPAY | PROVIDERS: PCP Internal Medicine; Visit Provider Radiology Diagnostic Radiology | DX: R16.1 Splenomegaly, not elsewhere classified (principal) | CPT/HCPCS: 74176 ==

== ENCOUNTER 2024-06-15 13:01 | Outpatient (AMB) | payer OTHER, SELFPAY ==
--- OUTSIDE RECORDS SUMMARY | 2024-06-15 13:03 | XMS_ITS | Clinical Summary ---
Author Organization [facility] [address] [place] [address] [place] [phone] Phone Care Team Providers Care Paleologist Name Role Phone Radha Almazan MD Primary Care Provider Allergies Active Allergy Reactions Criticality Noted Date Comments Prochlorperazine Anaphylaxis High 02/19/2019 Tramadol Anaphylaxis High 12/11/2018 Medications ibuprofen (ADVIL,MOTRIN) 600 mg tablet Take 1 Tablet by mouth every 6 hours as needed for Pain. 3 Active cholecalciferol (VITAMIN D-3) 1,250 mcg (50,000 unit) capsule Take 1 Capsule by mouth once a week. 4 Active levothyroxine (SYNTHROID, LEVOTHROID) 125 mcg tablet TAKE 1 TABLET BY MOUTH IN THE MORNING BEFORE BREAKFAST 90 tablet 4 Active Active Problems Problem Noted Date Diagnosed Date Cyclical breast pain 01/20/2022 Chronic GERD 07/29/2019 Hypothyroidism 09/04/2017 Encounters Date Type Department Care Team Description 04/11/2024 Lab Requisition [facility] - Main Lab [address] [facility] [place] [address] Rhett Gonzalez PA Unspecified abdominal pain from Last 3 Months Immunizations Name Administration Dates Next Due DTaP (Infanrix) 6wks to less than 7yo 02/01/2013 Influenza Quadravalent, MDCK , 0.5ml, preservative free (Flucelvax) 6mo and older 01/03/2019 Influenza trivalent, with preservative (Fluzone; Afluria) 6mo and older 01/29/2020,03/22/2017,03/11/2015,2013,02/01/2013 Td Tetanus diptheria (Tdvax) 7yo and older 11/03/2008 Tdap Tetanus diptheria acell ular pertussis (Boostrix; Adacel) 7yo and older 02/10/2020,06/11/2013 Surgical History Surgery Date Site/Laterality Comments SECTION PROCEDURE: IN DELIVERY ONLY OTHER SURGICAL HISTORY PROCEDURE: IN CHOLECYSTOSTOMY PRQ W/IMAGING & CATHETER PLMT Medical History Medical History Date Comments Kidney stones DX:Kidney stones Kidney stones DX:Kidney stones Cyclical breast pain 01/20/2022 DX:Cyclical breast pain Family History Medical History Relation Name Comments Diabetes Father Iddm Coronary artery disease Mother Hyperlipidemia Mother Hypertension Mother Breast cancer Other M cousin x2 M Cousins x 2, ages 40 and 30s Diabetes Sister 1 gestational Colon cancer Neg Hx Ovarian cancer Neg Hx Prostate cancer Neg Hx Relation Name Status Comments Father Alive Mother Alive Other M cousin x2 Alive Sister 1 Alive Sister 2 Alive Social History Tobacco Use Types Packs/Day Years Used Date Smoking Tobacco: Never Smokeless Tobacco: Never Alcohol Use Standard Drinks/Week Comments No 0 (1 standard drink = 0.6 oz pur e alcohol) Comments Unknown Sex and Gender Information Value Date Recorded Sex Assigned at Not on file Legal Sex Female 3:33 PM EST Gender Identity Not on file Sexual Orientation Not on file Obstetrics History Last Filed Vital Signs Vital Sign Reading Time Taken Comments Blood Pressure 110/74 06/23/2023 11:06 AM EDT Pulse 95 06/23/2023 11:06 AM EDT Temperature - - Respiratory Rate - - Oxygen Saturation - - Inhaled Oxygen Concentration - - Weight 72.6 kg (160 lb) 06/23/2023 11:06 AM EDT Height 160 cm (5' 3 ) 06/23/2023 11:06 AM EDT Body Mass Index 28.34 06/23/2023 11:06 AM EDT Plan of Treatment Health Maintenance Due Date Last Done Comments Hepatitis B Vaccines (1 of 3 - 19+ 3-dose series) 2004 Cervical Cancer Screening: Pap Smear 02/25/2020 02/24/2017, 02/24/2017 Depression Screening 02/19/2022 Social Influencers of Health Screening 02/19/2022 Cholesterol Screening (Lipid Panel) 11/07/2023 11/06/2018 COVID-19 Vaccine (3 - season) 2023 08/05/2020, 07/15/2020 Influenza Vaccine (#1) 2023 , 01/03/2019, 03/22/2017, Additional history exists Hypertension/CHF/CAD Annual BMP Blood Test 03/29/2024 06/29/2022, 02/20/2020 DTaP,Tdap,and Td Vaccines (5 - Td or Tdap) 02/09/2030 02/10/2020, 06/11/2013, 02/01/2013, Additional history exists HIV Screening Completed 09/04/2017 Hepatitis C Screening Completed 09/04/2017 HIB Vaccines Aged Out No longer eligi ble based on patient's age to complete this topic HPV Vaccines Aged Out No longer eligi ble based on patient's age to complete this topic Hepatitis A Vaccines Aged Out No long er eligible based on patient's age to complete this topic IPV Vaccines Aged Out No longer eligi ble based on patient's age to complete this topic MMR Vaccines Aged Out No longer eligi ble based on patient's age to complete this topic Meningococcal ACWY Vaccine Aged Out N o longer eligible based on patient's age to complete this topic Meningococcal B Vacine Aged Out No lo nger eligible based on patient's age to complete this topic Pneumococcal Vaccine: Pediatrics (0 to 5 Years) and At-Risk Patients (6 to 64 Years) Aged Out No longer eligible based on patient's age to complete this topic RSV Immunization Patients Under 20 months Aged Out No longer eligible based on patient's age to complete this topic Varicella Vaccines Aged Out No longer eligible based on patient's age to complete this topic Procedures Procedure Name Priority Date/Time Associated Diagnosis Comments CULTURE URINE Routine 04/11/2024 12:00 AM EST Unspecified abdominal pain ANNUAL BMP BLOOD TEST Routine 06/29/2022 LIPID PANEL Routine 11/06/2018 HEPATITIS C SCREENING Routine 09/04/2017 HIV SCREENING Routine 09/04/2017 HPV Routine 02/24/2017 from Last 3 Months or Most Recently Relevant to Health Maintenance Results * (ABNORMAL) Culture urine (04/11/2024 12:00 AM EST) Pathologist [facility] Culture, Urine >100,000 CFU/mL Escherichia coli(A) RONALD 04/13/2024 1:[address] [facility] Urine Urine specimen obtained by clean catch procedure / Unknown 04/11/2024 04/11/2024 6:21 PM EST Narrative Organism Antibiotic Method Susceptibility Escherichia coli Amoxicillin/Clavulanate RONALD 4 ug/ml: Susceptible Escherichia coli Ampicillin/Sulbactam RONALD <=2 ug/ml: Susceptible Escherichia coli Piperacillin/Tazobactam RONALD <=4 ug/ml: Susceptible Escherichia coli Cefazolin (Urine) RONALD <=1 ug/ml: Susceptible Escherichia coli Cefoxitin RONALD 8 ug/ml: Susceptible Escherichia coli Ceftazidime RONALD <=0.5 ug/ml: Susceptible Escherichia coli Ceftriaxone RONALD <=0.25 ug/ml: Susceptible Escherichia coli Cefepime RONALD <=0.12 ug/ml: Susceptible Escherichia coli Meropenem RONALD <=0.25 ug/ml: Susceptible Escherichia coli Amikacin RONALD <=1 ug/ml: Susceptible Escherichia coli Gentamicin RONALD <=1 ug/ml: Susceptible Escherichia coli Ciprofloxacin RONALD <=0.06 ug/ml: Susceptible Escherichia coli Levofloxacin RONALD <=0.12 ug/ml: Susceptible Escherichia coli Nitrofurantoin RONALD <=16 ug/ml: Susceptible Escherichia coli Trimethoprim/Sulfamethoxazole RONALD <=20 ug/ml: Susceptible [facility] MICROBIOLOGY - GE NERAL ORDERABLES Final Result [facility] [address] [place] [address], * Annual BMP Blood Test (06/29/2022) Pathologist [facility] Annual BMP Blood Test Abstracted Historical Provider HEALTH MAINTENANCE Final Result * (ABNORMAL) Lipid panel (11/06/2018) [facility] LDL/HDL Ratio 3 0 - 4 Triglycerides 102 0 - 150 mg/dL Cholesterol 191 0 - 200 mg/dL HDL 59 >=40 mg/dL LDL Cholesterol 112(A) 0 - 100 mg/dL Blood Venous blood specimen / Unknown [facility] Provider LAB BLOOD ORDERABLES Kristina l Result * HIV Screening (09/04/2017) [facility] HIV Screening Abstracted [facility] Provider HEALTH MAINTENANCE Final Result * Hepatitis C Screening (09/04/2017) [facility] Hepatitis C Screening Abstracted [facility] Provider HEALTH MAINTENANCE Final Result * Cervical Cancer Screening: HPV (02/24/2017) [facility] Cervical Cancer Screening: HPV Negative, Abstracted [facility] Provider HEALTH MAINTENANCE Final Result from Last 3 Months or Most Recently Relevant to Health Maintenance Insurance AET MEDICAID - [place] Care Teams Paleologist Relationship Specialty Start Date End Date Radha Almazan MD [address] [place] [id number] PCP - General Internal Medicine 05/05/22
--- OUTSIDE RECORDS SUMMARY | 2024-06-15 13:03 | XMS_ITS | Encounter Summary ---
Author Organization [facility] Address [address] [place] [address] Care Team Providers Care Incident Response Coordinator Name Role Phone Radha Almazan MD Primary Care Provider [phone] Encounter Details Date Type Department Care Team (Late st Contact Info) Description 04/11/2024 Lab Requisition [facility] - Main Lab [address] [facility] [place] [address] Rhett Gonzalez PA [address] [place] [address] Unspecified abdominal pain Social History Tobacco Use Types Packs/Day Years Used Date Smoking Tobacco: Never Smokeless Tobacco: Never Alcohol Use Standard Drinks/Week Comments No 0 (1 standard drink = 0.6 oz pur e alcohol) Comments Unknown Sex and Gender Information Value Date Recorded Sex Assigned at Not on file Legal Sex Female 3:33 PM EST Gender Identity Not on file Sexual Orientation Not on file documented as of this encounter Plan of Treatment Not on file documented as of this encounter Procedures Procedure Name Priority Date/Time Associated Diagnosis Comments CULTURE URINE Routine 04/11/2024 12:00 AM EST Unspecified abdominal pain documented in this encounter Results * (ABNORMAL) Culture urine (04/11/2024 12:00 AM EST) Culture, Urine >100,000 CFU/mL Escherichia coli(A) RONALD 04/13/2024 1:18 PM EST [facility] Urine Urine specimen obtained by clean [...] Escherichia coli Trimethoprim/Sulfamethoxazole RONALD <=20 ug/ml: Susceptible us [facility] MICROBIOLOGY - NERAL ORDERABLES Final Result Performing Organization Address City/State/[facility] Co de Phone Number [facility] [address] [place] [address], documented in this encounter Visit Diagnoses Diagnosis Unspecified abdominal pain documented in this encounter Care Teams Incident Response Coordinator Relationship Specialty Start Date End Date Radha Almazan MD [address] [place] [id number] PCP - General Internal Medicine 05/05/22 documented as of this encounter
[2024-06-15 13:08] VITALS: BP 120/80; PULSE 73; TEMP 36.6; O2SAT 98
--- NOTE | 2024-06-15 13:08 | MHC.OFFWIV ---
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 Reports that swelling started 3 days ago. She bought an [id number] cream and has been applying to the external eye. She reports that there was a blister-like area inside her lower lid which popped after use of the cream. She reports pus coming out of the area. She states that it was bothersome but not painful. She denies any fever, chills, trauma to the eye, visual disturbances. She does not wear glasses or contents lenses. She does not have an tank tender. Her PCP is located at [facility] Discussion Notes During the visit, I discussed the possible presence of an infection of the left eye, given the swelling and purulent discharge. I advised starting an antibiotic ointment with instructions on application and informed the patient that it might cause temporary blurred vision. I emphasized the importance of visiting an environmental communications specialist to rule out other conditions and ensure proper management. A possible referral was discussed, and clarification was made regarding optometry versus ophthalmology. Patient Instructions - Apply the provided antibiotic ointment to the left eye twice daily, morning and night. - Expect temporary blurred vision post-application. - Schedule an appointment with an tank tender at [facility] as soon as possible. - Monitor symptoms and seek medical care if you experience worsening pain, vision changes, or persistent headache. PFS Social History Patient Tobacco Use Status: Never used Tobacco Physical Exam Vital Signs: Last Vital Signs Temp 97.9 F 06/15/24 13:08 Pulse 73 06/15/24 13:08 BP 120/80 06/15/24 13:08 Pulse Ox 98 06/15/24 13:08 Oxygen Delivery Method Room Air 06/15/24 13:08 Eyes Other: Left eye, lower lid. In the area where there is a raised red papule, lower aspect, i was able to express pus and a very small amout of blood with a saline soaked Q tip Periorbital: periorbital findings abnormal left periorbital swelling and periorbital erythema Eyelids: Yes eyelid abnormality (mild edema of lower lid on the L only ) Conjunctivae: conjunctival abnormal left conjunctival injection diffuse Sclerae: sclerae normal Pupils: Equal, round and reactive pupils present and Pupil accommodation reflex normal EOM: EOMs intact bilaterally Direct Ophthalmoscopy: normal light reflex and no photophobia Neuro Cranial nerves: Yes Equal, round and reactive pupils present Assessment & Plan Assessment & Plan (1) Eye infection: Code(s): H44.009 - Unspecified purulent endophthalmitis, unspecified eye Qualifiers: Laterality: left Qualified Code(s): H44.002 - Unspecified purulent endophthalmitis, left eye Plan . Medications: New erythromycin 0.5 inches ophthalmic (eye) BID 5 days 3.5 grams 0RF Discontinued cefuroxime axetil Discontinued Reason: Patient Completed Course 500 mg PO BID 20 tabs 0RF cefuroxime axetil Discontinued Reason: Patient Completed Course 500 mg PO BID 20 tabs 0RF ibuprofen Discontinued Reason: Patient Completed Course 600 mg PO Q6H PRN 20 tabs 0RF fever or pain ibuprofen Discontinued Reason: Patient Completed Course 200 mg PO Q6H PRN 30 tabs 0RF fever or pain Patient Instructions: - Apply the provided antibiotic ointment to the left eye twice daily, morning and night. - Expect temporary blurred vision post-application. - Schedule an appointment with an tank tender at [facility] as soon as possible. - If an insurance referral is required, you will need to see your Primary care. - Monitor symptoms and seek medical care if you experience worsening pain, vision changes, or persistent headache. Coding Level of Care Code Est Pt Level 3 (81736) Diagnoses Infection of left eye H44.002 Laterality: left
== END 2024-06-15 13:51 | disposition home or self-care (01) ==
LOC: HO.HMCWIC 13:01
PROVIDERS: PCP Internal Medicine; Visit Provider Nurse Practitioner Family
DX: H44.002 Unspecified purulent endophthalmitis, left eye (principal)